=== PATIENT | female | born 1980 | race Asian ===

== ENCOUNTER 2020-09-18 12:28 | Emergency (ER) | payer OTHER ==
[~2020-09-18] VITALS: Ht 154.9 cm; Wt 47.6 kg
[2020-09-18 12:48] VITALS: Ht 154.9 cm; Wt 47.6 kg
[2020-09-18 14:02] VITALS: BP 129/91
== END 2020-09-18 14:02 | disposition home or self-care (01) ==
LOC: ED 12:28
DX: S81.012A Laceration without foreign body, left knee, initial encounter (principal); W01.0XXA Fall on same level from slipping, tripping and stumbling without subsequent striking against object, initial encounter; Y93.01 Activity, walking, marching and hiking; Y92.828 Other wilderness area as the place of occurrence of the external cause; Y99.8 Other external cause status
CPT/HCPCS: 90715; J2001